=== PATIENT | male | born 1975 | race African-American/Black ===

== ENCOUNTER 2023-11-28 09:41 | Emergency (ER) | payer OTHER ==
[~2023-11-28] VITALS: Ht 175.3 cm; Wt 167.5 kg
[2023-11-28 09:46] VITALS: BP 194/108; PULSE 83; RESP 19; TEMP 97.8; O2SAT 95
[2023-11-28] MEDS ORDERED: DOXY50CA5 PO (10:11)
[2023-11-28] MEDS ORDERED: LIDOCAINE MPF 1% 5 ML ONE (10:24)
[2023-11-28] MEDS ORDERED: cefTRIAXone 1,000 MG VIAL ONE (10:24)
[2023-11-28] MEDS: cefTRIAXone 1,000 MG in LIDOCAINE MPF 1% 2.1 ML IM ONE (10:32)
== END 2023-11-28 10:40 | disposition home or self-care (01) ==
LOC: MED 09:41
DX: Z11.3 Encounter for screening for infections with a predominantly sexual mode of transmission (principal); I10 Essential (primary) hypertension; J44.9 Chronic obstructive pulmonary disease, unspecified; Z79.899 Other long term (current) drug therapy
CPT/HCPCS: 87491; 96372; 99283; J0696; J2001